=== PATIENT | male | born 1960 | race Caucasian/White ===

== ENCOUNTER 2017-11-11 13:48 | Emergency (ER) | payer SELFPAY ==
[~2017-11-11] VITALS: Ht 165.1 cm; Wt 76.0 kg
[2017-11-11 13:58] VITALS: TEMP 36.8; Ht 165.1 cm; Wt 76.0 kg
[2017-11-11] MEDS ORDERED: IBUPROFEN 600 MG TAB PO STA (14:14)
[2017-11-11] MEDS ORDERED: BUPIVACAINE 0.25% 30 ML VIAL INFIL ONE (14:15)
[2017-11-11] MEDS ORDERED: XYLOCAINE 1%/SOD BICARB 20 ML VIAL INFIL ONE (14:15)
--- NOTE | 2017-11-11 14:24 | EMERGENCY ROOM VISIT NOTE ---
ED Visit Note First contact with patient: 14:01 Chief Complaint: Right second, third, and fourth Finger Lacerations History of Present Illness: This patient is a 56-year-old male who presents to the Emergency Department with his son by private vehicle for evaluation of their finger lacerations of the right hand that occurred today at about 1 PM. Patient sustained the lacerations when he had his fingers pinched while setting up a food cart. He states fingers were pinched between the attachment hook and the cart. They report a moderate amount of bleeding initially. They denies any numbness or tingling into the distal extremity. They report decreased range of motion of the affected digits due to pain. They have tried no medications for the pain. Patient rates his current discomfort as a 10/10. Patient denies any other injuries. Patient's Tetanus status is currently up-to-date, reports this was in the past 5 years. Patient is right-hand dominant. Denies any previous injuries or surgeries to this hand. Medications: Patient denies taking any daily medications Allergies: No known allergies PMH: No significant past medical or surgical history. SHx: Lives at home with family. He denies any tobacco use. ROS: A complete 10 point review of systems was reviewed with the patient with pertinent positives and negatives as per history of present illness. All else were negative. Physical Exam: VITAL SIGNS - Vital signs and nursing notes were reviewed. GENERAL - Pleasant and cooperative, in no acute distress, but noted to be in some pain. Communicates well with provider and answers questions appropriately. SKIN - There are multiple macerated lacerations to the volar aspect of the right hand fingers, most significant middle finger. These lacerations extend over the midportion of the fingers including the PIP joints. The laceration on the second finger approximately 4 cm in length, deep with exposed tendon and bone, a shearing type flap skin over the wound. This flap appears to be avascular and is very thin. There is also a 0.5 cm laceration on the dorsal aspect of the distal second finger, partial thickness in depth. The laceration on the third finger is approximately 7 cm in length, the wound is deep and with exposed tendon and bone, with a partially attached circular flap of skin at the base of the wound, but does appear to be viable. There is a 1 cm partial thickness laceration on the fourth finger. There are multiple small abrasions over all 3 fingers. There is no debris or notable foreign body noted within the wound. On close examination of the flexor tendons, these appear to be fully intact with no partial lacerations, full flexion and extension of the second and third finger are intact against resistance. There is moderate active bleeding noted. MUSCULOSKELETAL - Lacerations as described above. + 5/5 strength appreciated of the affected digits, though slightly limited due to pain. Flexion, extension, sensation intact to all 5 fingers of the right hand. There is tenderness over the distal second third and fourth fingers adjacent to the lacerations. There is no tenderness or deformity noted to the body of the right hand, thumb or the fifth finger. NEUROLOGIC - No sensory defects of the affected digits were appreciated utilizing light touch for evaluation. VASCULAR - Capillary refill was brisk. Imaging: R HAND MIN 3 VIEWS ROUTINE CLINICAL HISTORY: lacerations to 2nd, 3rd, 4th fingers. Eval open fx COMPARISON STUDY: None. FINDINGS: Soft tissue swelling and soft tissue lacerations within the right second third fingers. Nondisplaced fractures within the head of the middle phalanx of the second finger and proximal to mid middle phalanx of the third finger. IMPRESSION: Nondisplaced fractures within the middle phalanges of the second and third fingers. ED Course: Patient was seen and evaluated by myself. Differential diagnosis includes abrasion, laceration, open fracture, tendon laceration, retained foreign body, crush injury, among others. Patient was provided with Motrin for pain relief. Given the significant damage multiple fingers, an x-ray was performed to evaluate for possible open fracture. X-ray reviewed and shows nondisplaced, comminuted, intra-articular fractures of the middle phalanges of the second and third fingers, consistent with open fracture. An IV was placed and the patient was given 1 g of IV Ancef. I discussed over the phone with Dr. Cedeño, orthopedics regarding the patient' s injuries, given this is his dominant hand and open fractures, he did agree the patient could have wound closure and splint placement in the ED and should have close follow-up in the clinic tomorrow. Costs and benefits of performing primary wound closure versus no repair were discussed with the patient who verbalizes understanding. Verbal consent was obtained prior to performing the procedure. 8 cc of 50:50 solution of 1% buffered lidocaine and 0.25% bupivacaine was used to perform digital blocks of the second, third, and fourth digits of the right hand. The wounds were cleansed and prepped in the typical sterile fashion utilizing normal saline and Betadine. The wounds were sterilely draped. Once proper anesthetization was established, the wounds were further examined and demonstrated the above findings, verifying no apparent damage to the flexor tendons. The wounds were copiously irrigated with normal saline and Betadine. The 1 cm laceration on the fourth finger was closed using 2 simple, 5-0 nylon sutures with the wound edges being well approximated. Attention was then turned to 4 cm laceration on the second finger. The wound was first partially closed using 3 simple, 5-0 Vicryl buried sutures to approximate the underlying tissue. The skin flap was then tacked down with 8 simple, 5-0 nylon sutures, with the wound edges being well approximated and hemostasis was achieved. There was some return of normal color and capillary refill to the skin flap after closure, however this area remains predominantly dusky in appearance. Attention was then turned to the 0.5 cm laceration on the dorsal aspect of the second finger, which was closed with 2 simple, 5-0 nylon sutures, with good wound approximation and hemostasis achieved. Attention was then turned to the 7 cm laceration on the third finger , which is the most complex wound. This wound was closed using a combination of 4-0 nylon sutures and 5-0 nylon sutures, some simple interrupted stitches, and some horizontal mattress stitches to relieve tension on the wound edges. Wound edges were loosely approximated and hemostasis was achieved. Patient tolerated the procedure well. No complications were met. The wound was cleansed , bacitracin ointment was applied to the wounds, the wound was then wrapped in Xeroform gauze, 4 x 4's, and dry gauze dressing. An Ortho-Glass volar splint was applied to the right hand from the fingertips to the mid forearm to stabilize the lacerations and fractures. Patient educated on worrisome symptoms for return visit to the Emergency Department. Rx for Keflex was sent to the pharmacy, as well as a small Rx for Durbin for pain management. Patient was discharged home in stable condition and ambulatory. Blood pressure screening: The patient was found to have an elevated blood pressure, this was suspected to be situational. Current/Historical Medications Scheduled Cephalexin Monohydrate (Keflex), 500 MG PO QID Scheduled PRN Hydrocodone/Acetaminophen 5MG/325MG (Durbin 5MG/325MG), 1-2 TAB PO Q6H PRN for Severe Pain Allergies Coded Allergies: No Known Allergies (Unverified , 11/11/17) Vital Signs Date Time Temp Pulse Resp B/P (MAP) Pulse Ox O2 Delivery O2 Flow Rate FiO2 11/11/17 13:58 36.8 97 16 140/97 97 Medications Administered Medications (Trade) Dose Ordered Sig/Earl Route Start Time Stop Time Status Last Admin Dose Admin Ibuprofen (Motrin Tab) 600 mg NOW STAT PO 11/11/17 14:14 11/11/17 14:16 DC 11/11/17 14:21 600 MG Lidocaine HCl (Buffered Lidocaine 1% Inj) 20 ml ONE ONCE INFIL 11/11/17 14:15 11/11/17 14:16 DC 11/11/17 14:22 20 ML Bupivacaine HCl (Sensorcaine 0.25% Inj) 10 ml NOW ONCE INFIL 11/11/17 14:15 11/11/17 14:16 DC 11/11/17 14:22 10 ML Cefazolin Sodium (Cefazolin 1000mg Iv Push) 1,000 mg NOW STAT IV 11/11/17 15:05 11/11/17 15:07 DC 11/11/17 15:23 1,000 MG Departure Information Impression Primary Impression: Laceration of multiple sites of right hand and fingers Additional Impressions: Fracture of finger, middle phalanx, right, open Fracture of finger, middle phalanx, open Dispostion Home / Self-Care Condition GOOD Prescriptions Hydrocodone/Acetaminophen 5MG/325MG (Durbin 5MG/325MG) Tab 1-2 TAB PO Q6H Y for Severe Pain, #20 TAB PRN PAIN Prov: Lexi Davenport CRNP 11/11/17 Cephalexin Monohydrate (Keflex) 500 Mg Cap 500 MG PO QID for 7 Days, #28 CAP Prov: Lexi Davenport CRNP 11/11/17 Referrals No Doctor, Assigned (PCP) Frank Cedeño, DO Patient Instructions ED Fx Finger Open, ED Laceration Hand, [facility] Additional Instructions You have received 19 sutures on your right hand (pointer, middle, and ring fingers). These sutures are NOT dissolvable and will need to be removed by a health care provider in 10 days. You may return to the Emergency Department or see your orthopedic surgeon to have the sutures removed. Please wear the splint and do not remove the dressing until you are seen by orthopedics surgery tomorrow. DO NOT get the splint or your dressing wet. You MUST follow up with the orthopedic surgeon for ongoing treatment of your hand injury. You should call first thing tomorrow morning for your appointment time and you will be seen in the clinic tomorrow (Friday, November 12). Keep your hand elevated as much as possible to help reduce swelling and pain. Look for signs of infection of the wound including: increased pain, swelling, foul discharge, streaking, or increased temperature. If any of these are noticed you should return to the Emergency Department for further assessment and treatment. As with any laceration you may have received nerve damage to the surrounding tissues. This damage may or may not be permanent. You were prescribed Keflex to be taken 4 times a day for 7 days. This is an antibiotic. All antibiotics have the potential to cause diarrhea. Stop this medication and contact a medical provider if you were to develop any significant adverse side effects including: wheezing, shortness of breath, passing out, vomiting, or a diffuse rash. Always take antibiotics as directed and COMPLETE the ENTIRE course regardless of the improvement of your symptoms. You have been prescribed Durbin for severe pain. This is a narcotic, DO NOT drive, operate machinery, or drink alcohol while you are taking this medication , as it may make you drowsy. Take with food to help reduce stomach upset. You may also take Regular strength (325mg/tab) Tylenol (acetaminophen) 1-2 tabs every 4-6 hours as needed. Do not exceed 10 tablets in a 24 hour period. Avoid taking more than 3000 mg total of Tylenol per day. This includes any other sources of acetaminophen you may take on a regular basis. Return to the emergency department if your symptoms worsen despite treatment course outlined above. Problem Qualifiers Primary Impression: Laceration of multiple sites of right hand and fingers Encounter type: initial encounter Qualified Codes: S61.411A - Laceration without foreign body of right hand, initial encounter; S61.219A - Laceration without foreign body of unspecified finger without damage to nail, initial encounter Additional Impressions: Fracture of finger, middle phalanx, right, open Encounter type: initial encounter Finger: index finger Fracture alignment: nondisplaced Qualified Codes: S62.650B - Nondisplaced fracture of middle phalanx of right index finger, initial encounter for open fracture Fracture of finger, middle phalanx, open Encounter type: initial encounter Finger: middle finger Fracture alignment : nondisplaced Laterality: right Qualified Codes: S62.652B - Nondisplaced fracture of middle phalanx of right middle finger, initial encounter for open fracture
--- NOTE | 2017-11-11 14:47 | DIAGNOSTIC IMAGING REPORT ---
R HAND MIN 3 VIEWS ROUTINE CLINICAL HISTORY: lacerations to 2nd, 3rd, 4th fingers. Eval open fx COMPARISON STUDY: None. FINDINGS: Soft tissue swelling and soft tissue lacerations within the right second third fingers. Nondisplaced fractures within the head of the middle phalanx of the second finger and proximal to mid middle phalanx of the third finger. IMPRESSION: Nondisplaced fractures within the middle phalanges of the second and third fingers. Electronically signed by: Angelo Castillo M.D. 11/11/2017 2:45 PM Dictated Date/Time: 11/11/2017 2:37 PM
[2017-11-11] MEDS ORDERED: CEFAZOLIN SOD 1000MG/5 ML IV PUSH IV STA (15:05)
[2017-11-11] MEDS ORDERED: CEPH500C PO (17:13)
[2017-11-11] MEDS ORDERED: HYDR-5688 PO (17:13)
[2017-11-11 17:23] VITALS: BP 144/88; PULSE 91; O2SAT 99
== END 2017-11-11 17:40 | disposition home or self-care (01) ==
LOC: C.EDB 13:50 → C.EDD 17:40
DX: S61.411A Laceration without foreign body of right hand, initial encounter (principal); S61.210A Laceration without foreign body of right index finger without damage to nail, initial encounter; S61.212A Laceration without foreign body of right middle finger without damage to nail, initial encounter; S61.214A Laceration without foreign body of right ring finger without damage to nail, initial encounter; S62.650B Nondisplaced fracture of middle phalanx of right index finger, initial encounter for open fracture; S62.652B Nondisplaced fracture of middle phalanx of right middle finger, initial encounter for open fracture; W23.0XXA Caught, crushed, jammed, or pinched between moving objects, initial encounter; Y93.89 Activity, other specified; Y99.8 Other external cause status